=== PATIENT | male | born 1940 | race Caucasian/White ===

== ENCOUNTER 2020-04-01 02:55 | Inpatient (IN) | payer MEDICARE, SELFPAY ==
[2020-04-01] VITALS (46 sets, daily range): BP systolic 72–132; BP diastolic 51–85; PULSE 74–115; RESP 4–31; TEMP 36.6–36.8; O2SAT 90–100; BMI 29.2
--- NOTE | 2020-04-01 03:01 | PC.NURSE ---
EKG done at 0300 and shown to ER doctor
--- NOTE | 2020-04-01 03:04 | XRR_ITS ---
PROCEDURE INFORMATION: Exam: XR Chest, 1 View Exam date and time: 04/01/2020 3:11 AM Age: 79 years old Clinical indication: Shortness of breath; Chest pain; Type not specified; Additional info: Cp TECHNIQUE: Imaging protocol: XR of the chest Views: 1 view. COMPARISON: No relevant prior studies available. FINDINGS: Lungs: Interstitial pulmonary edema with small pleural effusions. Interstitial thickening. Bertrand B lines. Pleural space: See Lungs finding. Heart/Mediastinum: Unremarkable. No cardiomegaly. Bones/joints: Unremarkable. XR/XR chest 1V portable [id number] IMPRESSION: Interstitial pulmonary edema with small pleural effusions.
--- NOTE | 2020-04-01 03:16 | ECG_ITS ---
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 Measurements Intervals [place] Rate: 115 P: 76 PA: 183 QRS: -3 QRSD: 150 T: 112 QT: 374 QTc: 518 Interpretive Statements SINUS TACHYCARDIA WITH OCCASIONAL VENTRICULAR PREMATURE COMPLEXES LEFT ATRIAL ENLARGEMENT [-0.15mV P WAVE IN V1/V2] LEFT BUNDLE BRANCH BLOCK [120+ ms QRS DURATION, 80+ ms Q/S IN V1/V2, 85+ ms R IN I/aVL/V5/V6] No previous ECG available for comparison Electronically Signed On 04-01-2020 18:55:22 GOLF SALES MANAGER by Kishan Wright M.D. [id number]
--- NOTE | 2020-04-01 03:17 | ED_ITS ---
HPI - Chest Pain General: Chief Complaint: Chest Pain Stated Complaint: NSTEMI D/A Time Seen by Provider: 04/01/20 03:00 History of Present Illness: HPI narrative: 79-year-old male presents as a direct admit to cardiology for a non-STEMI . From [facility]. He is not having any pain currently. He denies any contact with known Covid patients. He states he is not had a cough or fever. MD complaint: chest pain Onset (ago): hour(s) Timing of current episode: now resolved Onset: during rest Associated symptoms: Reports dyspnea and palpitations; Deny fever(s) or vomiting Review of Systems Const: Denies: fever(s), chills or body aches Card: Reports: chest pain and palpitations Resp: Reports: dyspnea; Denies: productive cough, non-productive cough or wheezing GI: Denies: vomiting or diarrhea Physical Exam Const: COMMON NORMALS: no acute distress and patient oriented x3 Resp: EFFORT & INSPECTION: Yes tachypneic and No uses accessory muscles AUSCULTATION: rales Cardio: COMMON NORMALS: regular rhythm RATE: tachycardic RHYTHM: regular rhythm HEART SOUNDS: no murmurs GI: COMMON NORMALS: Soft to palpation INSPECTION: Yes normal to inspection PALPATION: Yes Soft to palpation and No Tenderness to palpation present (GI) Neuro: COMMON NORMALS: patient oriented x3 Course Consultations: Consultation #1: Martell Time: 05:12 Vital Signs: Vital signs: Vital Signs Temperature 98.1 F 04/01/20 02:55 Pulse Rate 103 H 04/01/20 05:31 Respiratory Rate 28 H 04/01/20 05:31 Blood Pressure 116/75 04/01/20 05:31 Pulse Oximetry 97 04/01/20 05:31 MDM - Chest Pain MDM Narrative: Medical decision making narrative: 79-year-old gentleman who came in as a direct admit from [facility]. He comes to the ER for Covid screen. His rapid is negative. He is chest pain-free. He has been on heparin. His white blood cell count is 4.8 hemoglobin 13.8. His EKG shows a left bundle branch block, with tachycardia in the 110s to 120s. This improved somewhat after some metoprolol. He received Plavix and aspirin at [facility] as well. His troponin was significantly elevated there. It is over 700 here. His chest x-ray showed some pulmonary edema here, and Lasix was given. We notified cardiology. They will see him this morning in the C[facility].. Lab Data: Labs: Lab Results 04/01/20 04/01/20 04/01/20 Range/Units 03:33 03:33 03:33 WBC 4.8 (4.0-10.0) 10^3/ uL RBC 4.72 (4.1-5.3) 10^6/u L Hgb 13.8 (11.7-16.6) g/dL Hct 42.2 (42.0-52.0) % MCV 89.4 (80-94) fL MCH 29.2 (28.0-34.0) pg MCHC 32.7 (30.0-36.0) g/dL RDW 12.9 (12.1-15.1) % Plt Count 189 (130-400) 10^3/c mm MPV 10.0 (7.4-10.4) fL Neut % (Auto) 93.3 % Lymph % (Auto) 4.2 % Person % (Auto) 2.3 % Eos % (Auto) 0.0 % Baso % (Auto) 0.2 % Neut # (Auto) 4.47 (1.8-7.7) 10^3/u L Lymph # (Auto) 0.2 L (0.8-4.8) 10^3/u L Person # (Auto) 0.1 L (0.2-0.9) 10^3/u L Eos # (Auto) 0.0 (0.0-0.8) 10^3/u L Baso # (Auto) 0.0 (0.0-0.1) 10^3/u L Nucleated RBC % (a uto) 0 % Nucleated RBCs # 0.0 /100WBC D-Dimer 0.52 (0-0.59) ug/mIFE U Sodium 133 L (136-145) mmol/L Potassium 4.6 (3.5-5.1) mmol/L Chloride 98 (98-107) mmol/L Carbon Dioxide 20 L (22-29) mmol/L Anion Gap 19.6 H (5-19) BUN 19 (8-23) mg/dL Creatinine 1.0 (0.7-1.2) mg/dL GFR Calculation Not Reportable Glucose 166 H (65-115) mg/dL Calculated Osmolal ity 282 L (285-295) mOsm/k g Calcium 9.1 (8.5-10.5) mg/dL Total Bilirubin 0.5 (0.15-1.2) mg/dL AST 90 H (0-40) U/L ALT 25 (0-41) U/L Alkaline Phosphata se 70 (40-130) IU/L Creatine Kinase 649 H* (39-308) U/L Troponin T Baselin e (0-15) ng/L NT-Pro-B Natriuret Pep 4826 H (0-450) pg/mL Total Protein 6.6 (6.6-8.7) g/dL Albumin 4.1 (3.5-5.2) g/dL Globulin 2.5 (1.3-4.6) g/dL SARS-CoV-2 Ag (Rap id) (Negative) 04/01/20 04/01/20 Range/Units 03:33 03:33 WBC (4.0-10.0) 10^3/ uL RBC (4.1-5.3) 10^6/u L Hgb (11.7-16.6) g/dL Hct (42.0-52.0) % MCV (80-94) fL MCH (28.0-34.0) pg MCHC (30.0-36.0) g/dL RDW (12.1-15.1) % Plt Count (130-400) 10^3/c mm MPV (7.4-10.4) fL Neut % (Auto) % Lymph % (Auto) % Person % (Auto) % Eos % (Auto) % Baso % (Auto) % Neut # (Auto) (1.8-7.7) 10^3/u L Lymph # (Auto) (0.8-4.8) 10^3/u L Person # (Auto) (0.2-0.9) 10^3/u L Eos # (Auto) (0.0-0.8) 10^3/u L Baso # (Auto) (0.0-0.1) 10^3/u L Nucleated RBC % (a uto) % Nucleated RBCs # /100WBC D-Dimer (0-0.59) ug/mIFE U Sodium (136-145) mmol/L Potassium (3.5-5.1) mmol/L Chloride (98-107) mmol/L Carbon Dioxide (22-29) mmol/L Anion Gap (5-19) BUN (8-23) mg/dL Creatinine (0.7-1.2) mg/dL GFR Calculation Glucose (65-115) mg/dL Calculated Osmolal ity (285-295) mOsm/k g Calcium (8.5-10.5) mg/dL Total Bilirubin (0.15-1.2) mg/dL AST (0-40) U/L ALT (0-41) U/L Alkaline Phosphata se (40-130) IU/L Creatine Kinase (39-308) U/L Troponin T Baselin e 758 H* (0-15) ng/L NT-Pro-B Natriuret Pep (0-450) pg/mL Total Protein (6.6-8.7) g/dL Albumin (3.5-5.2) g/dL Globulin (1.3-4.6) g/dL SARS-CoV-2 Ag (Rap id) Negative (Negative) Discharge Plan Discharge Patient Disposition: Admitted As Inpatient Admit Provider: Carlyle Moura Clinical Impression: Myocardial infarction Qualifiers: Myocardial infarction type: non-ST elevation myocardial infarction Qualified Code(s): I21.4 - Non-ST elevation (NSTEMI) myocardial infarction Condition: Stable Coding Level of Care Code ED Motor Expert for Chg Fwd Exam Expanded Problem Focused
--- NOTE | 2020-04-01 03:23 | PC.NURSE ---
Placed patient on 2 liters via nasal cannula per doctors orders. Nurse and doctor have been made aware.
[2020-04-01] MEDS: FUROsemide 10 mg/mL SDV 10mL 60 MG IVP (03:33)
[2020-04-01] MEDS: metoprolol tartrate 1 mg/1 mL SDV 5 mL 2.5 MG IV (03:35)
[2020-04-01] MEDS: heparin drip 25,000 UNIT/500 ML PREMIX 18 UNIT IV (03:35)
[2020-04-01 03:50] LABS: Basophils % 0.2 %; Hematocrit 42.2 % (42.0-52.0); Hemoglobin 13.8 g/dL (11.7-16.6); Lymphocytes # 0.2 10^3/uL (0.8-4.8); Lymphocytes % 4.2 %; Mean Corpuscular HGB Conc 32.7 g/dL (30.0-36.0); Mean Corpuscular Hemoglobin 29.2 pg (28.0-34.0); Mean Corpuscular Volume 89.4 fL (80-94); Monocytes # 0.1 10^3/uL (0.2-0.9); Monocytes % 2.3 %; Neutrophils # 4.47 10^3/uL (1.8-7.7); Neutrophils % 93.3 %; Nucleated Red Blood Cells % 0 %; Platelet Count 189 10^3/cmm (130-400); Red Blood Count 4.72 10^6/uL (4.1-5.3); Red Cell Distribution Width 12.9 % (12.1-15.1); White Blood Count 4.8 10^3/uL (4.0-10.0)
[2020-04-01 04:14] LABS: SARS Covid-2 Antigen Negative (Negative)
[2020-04-01 04:29] LABS: D Dimer 0.52 ug/mIFEU (0-0.59)
[2020-04-01 04:55] LABS: Alanine Aminotransferase 25 U/L (0-41); Albumin Level 4.1 g/dL (3.5-5.2); Alkaline Phosphatase 70 IU/L (40-130); Anion Gap 19.6 (5-19); Aspartate Amino Transferase 90 U/L (0-40); Blood Urea Nitrogen 19 mg/dL (8-23); Calcium 9.1 mg/dL (8.5-10.5); Carbon Dioxide 20 mmol/L (22-29); Chloride 98 mmol/L (98-107); Globulin 2.5 g/dL (1.3-4.6); Glucose 166 mg/dL (65-115); NT Pro B Type Natriuretic Pept 4826 pg/mL (0-450); Osmolality Calculated 282 mOsm/kg (285-295); Potassium 4.6 mmol/L (3.5-5.1); Sodium 133 mmol/L (136-145); Total Bilirubin 0.5 mg/dL (0.15-1.2); Total Protein 6.6 g/dL (6.6-8.7)
[2020-04-01 04:56] LABS: Creatine Phosphokinase 649 U/L (39-308)
[2020-04-01 05:09] LABS: Troponin(5th) Baseline 758 ng/L (0-15)
--- NOTE | 2020-04-01 05:15 | PC.NURSE ---
EKG done at 0515 and shown to ER doctor
--- NOTE | 2020-04-01 05:16 | ECG_ITS ---
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 Measurements Intervals [place] Rate: 106 P: 8 [place]: 188 QRS: -36 QRSD: 164 T: 125 QT: 373 QTc: 497 Interpretive Statements SINUS TACHYCARDIA WITH OCCASIONAL VENTRICULAR PREMATURE COMPLEXES POSSIBLE LEFT ATRIAL ENLARGEMENT [-0.1mV P WAVE IN V1/V2] LEFT AXIS DEVIATION [QRS AXIS < -30] LEFT BUNDLE BRANCH BLOCK [120+ ms QRS DURATION, 80+ ms Q/S IN V1/V2, 85+ ms R IN I/aVL/V5/V6] Compared to ECG 04/01/2020 02:58:02 Left-axis deviation now present Electronically Signed On 04-01-2020 18:59:32 DRILLER'S OFFSIDER by Kishan Wright M.D. [id number]
[2020-04-01 05:55] LABS: Troponin 5 2HR 1151 ng/L (0-15); Troponin 5 2HR Delta 393 ABS# (0-10)
--- NOTE | 2020-04-01 06:20 | P.HP_ITS ---
Providers/Chief Complaint Admitting Physician: Carlyle Moura MD Chief Complaint: NSTEMI D/A History of Present Illness Khoa Thomas is a 79 year old male who does not have significant past cardiac history went to the [facility] for chief complaint of chest pain. 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 For last 2 to 3 weeks he is also experiencing shortness of breath on exertion and lately he has been experiencing orthopnea and PND which gets better when he sits up. Today he started experiencing chest pain around 5-6 PM when he was watching television. Mostly he was feeling discomfort in his neck and jaw, he noticed mild pressure-like sensation substernally and would not call it excruciating pain. His pain persisted until he went to the [facility] and received medications. Symptoms improved with sublingual nitroglycerin. He is denying previous history of chronic kidney disease, SD, CHF, stroke however he is status post left carotid artery stent. [facility] called Dr. Wright for NSTEMI, Dr. Moura accepted the patient and requested hospitalist service to admit and consult Dr. Wright. In the emergency department patient's troponin was greater than 700, significant delta, left bundle branch block without Brugada's criteria, patient is chest pain-free, hemodynamically stable, tachycardic. He was started on heparin/ACS protocol, Covid antigen negative, new onset CHF, pulmonary edema evident on chest x-ray Review of Systems Const: Denies: fever(s), chills or body aches Eyes: Denies: change in vision ENMT: Denies: throat pain Card: Reports: chest pain, swelling of feet/ankles, dyspnea on exertion and orthopnea; Denies: pre-syncope Resp: Reports: dyspnea GI: Denies: abdominal pain : Denies: flank pain Musc: Reports: neck pain Skin/Breast: Denies: rash Neuro: Denies: headache(s) Psych: Denies: anxiety Endo: Denies: polyuria Victor Manuel/Lymph: Denies: easy bruising All/Imm: Denies: urticaria Medications/Allergies Home Medications Medication Instructions Recorded Confirmed Last Taken Type atorvastatin 10 mg PO BEDTIME 04/01/20 04/01/20 03/30/20 20:00 History finasteride 5 mg PO BEDTIME 04/01/20 04/01/20 03/30/20 20:00 History levothyroxine 50 mcg PO DAILY 04/01/20 04/01/20 03/31/20 08:00 History lisinopril 10 mg PO BEDTIME 04/01/20 04/01/20 03/30/20 20:00 History metoprolol tartrate 6.25 mg PO BID 04/01/20 04/01/20 03/31/20 17:30 History terazosin 10 mg PO BEDTIME 04/01/20 04/01/20 03/30/20 20:00 History Allergies Allergy/AdvReac Type Severity Reaction Status Date / Time No Known Allergies Allergy Verified 04/01/20 02:56 PFSH Acute PFSH: Medical History (Updated 04/01/20 @ 07:03 by Carlyle Lambert MD) BPH (benign prostatic hyperplasia) Carotid artery disease Status post stent placement left carotid artery Hypertension Hypothyroidism (acquired) Surgical History (Updated 04/01/20 @ 07:03 by Carlyle Lambert MD) History of thyroidectomy Partial thyroidectomy History of vascular surgery Left carotid endartectomy with stent placement Family History (Updated 04/01/20 @ 07:04 by Carlyle Lambert MD) Father CAD (coronary artery disease) Had an SD at age 89 Social History (Updated 04/01/20 @ 07:04 by Carlyle Lambert MD) Alcohol intake: never Substance/Drug Use: never Lives independently: Yes Household members: spouse Housing: House Vitals/I&O/Wt Last Vital Signs Temp 98.2 F 04/01/20 06:00 Pulse 105 H 04/01/20 06:00 Resp 20 H 04/01/20 06:00 BP 132/64 04/01/20 06:00 Pulse Ox 95 04/01/20 06:00 Weight last 48 hrs Weight 74.843 kg Physical Exam Narrative: EXAM NARRATIVE: elderly male When I entered the room he was lying comfortably in his bed without any active discomfort Saturating well on room air Appears younger than stated age S1, S2 sinus tachycardia, minimal signs of fluid overload, bilateral crackles noted in his lungs at the bases No acute respiratory stress, crackles noted bibasilar, 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 No neurological deficit Awake alert oriented x3 GCS 15 Abdomen soft nontender bowel sound present Lower extremity 1+ pitting edema Appropriate mood and affect No skin ulcers Data : 04/01/20 03:33 04/01/20 03:33 A&P Assessment and plan (1) New onset of congestive heart failure: Status: Acute (2) NSTEMI (non-ST elevated myocardial infarction): Status: Acute Additional A&P Information NSTEMI Significant delta troponin, left bundle branch block, no active chest pain, does not meet Brugada's criteria for STEMI alert I will start him on heparin, aspirin, Plavix, high-intensity statins, beta- marcus and lisinopril Dr. Wright consulted(went to voicemail) Dr. Moura requested hospital service to admit the patient Echo Patient most likely will benefit from an angiogram considering new left bundle branch block and NSTEMI and CHF Check lipid profile, A1c panel and TSH New onset CHF Most likely etiology is coronary ischemia He will benefit from an angiogram No acute respiratory distress, currently saturating well on room air at the time of my evaluation Received IV Lasix 60 mg in the ER I would keep him on 20 mg for now clinically does not look significantly fluid overloaded however chest x-ray is consistent with pulmonary edema which goes with the clinical picture of left-sided heart failure Acquired hypothyroidism: Continue levothyroxine, check TSH Hypertension: Currently normotensive N.p.o. Full code DVT prophylaxis not needed currently on therapeutic dose of heparin Attestations Medical Necessity Statement*: Anticipating stay in the hospital course more than 2 midnights most likely would need an angiogram currently NSTEMI ACS protocol initiated Time Spent in Patient Care: (>than 50% of time spent in counselling and/or direct pt care on unit) . 40mins Coding Level of Care Code Acute Snowboard Designer for Jaelyn Fwolimpia Diagnoses New onset of congestive heart failure I50.9 NSTEMI (non-ST elevated myocardial infarction) I21.4
--- NOTE | 2020-04-01 06:24 | USCV_ITS ---
Khoa Thomas Age: 79 Gender: M : 1940 Exam Date: 04/01/2020 08:31 Ordering Phys: Carlyle Lambert MD Technologist: Caryl Olson Exam Location: [facility] Indication: NSTEMI BP: 97 / 72 HR: 76 Rhythm: Sinus Technical Quality: Suboptimal MEASUREMENTS (Male / Female) Normal Values 2D ECHO LV Diastolic Diameter PLAX 4.7 cm 4.2 - 5.9 / 3.9 - 5.3 cm LV Systolic Diameter PLAX 3.3 cm LV Chamber Size 4.7 cm IVS Diastolic Thickness 1.0 cm 0.6 - 1.0 / 0.6 - 0.9 cm IVS Systolic Thickness 1.8 cm LVPW Diastolic Thickness 1.1 cm 0.6 - 1.0 / 0.6 - 0.9 cm LVPW Systolic Thickness 1.3 cm RV Chamber Size 2.6 cm LVOT Diameter 2.1 cm LV Ejection Fraction 2D Teich 57.6 % LA Diameter 3.8 cm LA Width 4.0 cm LA Height 5.9 cm RA Width 2.8 cm RA Height 4.4 cm Aorta at Sinotubular Diameter 3.2 cm M-MODE LV Diastolic Diameter MM 6.7 cm 4.2 - 5.9 / 3.9 - 5.3 cm LV Systolic Diameter MM 5.7 cm LV Ejection Fraction MM Teich 30.7 % IVS Diastolic Thickness MM 1.7 cm 0.6 - 1.0 / 0.6 - 0.9 cm IVS Systolic Thickness MM 1.4 cm LVPW Diastolic Thickness MM 1.3 cm 0.6 - 1.0 / 0.6 - 0.9 cm LVPW Systolic Thickness MM 1.7 cm Aortic Annulus Diameter 3.8 cm LA Ao Ratio MM 0.9 MV E Point Septal Separation 1.2 cm DOPPLER AV Peak Velocity 90.0 cm/s LVOT Peak Velocity 77.0 cm/s AV Area Cont Eq vti 3.0 cm squared AV Area Cont Eq pk 3.1 cm squared MV Area PHT 9.2 cm squared MV E' Velocity 152.0 cm/s TR Peak Velocity 317.0 cm/s TR Peak Gradient 40.2 mmHg TR Mean Velocity 264.8 cm/s TR Mean Gradient 28.3 mmHg TR Velocity Time Integral 73.9 cm TV Peak E Velocity 90.0 cm/s PV Peak Velocity 89.0 cm/s RV Acceleration Time 0.1 s RV Ejection Time 0.2 s RV AcT/ET 0.5 FINDINGS Left Ventricle Diffuse hypokinesia of the left ventricle with ejection fraction of 35 to 40%. Mildly dilated LV cavity Right Ventricle Normal right ventricular size and systolic function. Right Atrium The right atrium is normal in size. Left Atrium Mildly increased left atrial size. Mitral Valve At least moderate mitral valve regurgitation. Thickened mitral valve. Aortic Valve Thickened aortic valve Tricuspid Valve Trace to mild tricuspid valve regurgitation. Mild pulmonary hypertension with an estimated pulmonary artery peak systolic pressure of 48 mmHg Pulmonic Valve Trace pulmonary valve regurgitation. Pericardium No pericardial effusion. Aorta Normal ascending aorta dimension. CONCLUSIONS Diffuse hypokinesia of the left ventricle with ejection fraction of 35 to 40%. Mildly dilated LV cavity. Mildly increased left atrial size. Thickened aortic and mitral valves Trace to mild tricuspid valve regurgitation. Trace pulmonary valve regurgitation. Mild pulmonary hypertension with an estimated pulmonary artery peak systolic pressure of 48 mmHg. There is no pericardial effusion. There are no intracardiac masses. No previous study is available for comparison. Dr Kishan Wright MD FACC (Electronically Signed) Final Date: 01 April 2020 10:49 S
[2020-04-01 07:07] LABS: Estmated Average Glucose 117; Hemoglobin A1C 5.7 % (4.0-6.0)
[2020-04-01 07:13] LABS: Chol HDL Ratio 2.44 mg/dL (1.0-5.00); Cholesterol 156 mg/dL (0-200); HDL Cholesterol 64 mg/dL (60-100); LDL Cholesterol Calculated 86 mg/dL (50-129); LDL HDL Ratio 1.34 RATIO (0.00-3.22); Triglycerides 31 mg/dL (0-150)
--- NOTE | 2020-04-01 07:33 | PC.NURSE ---
Patient arrived to floor via stretcher from ER at 0445 this am. Patient alert and oriented with no skin issues noted at this time. Patient is tachycardic with no voiced chest pain or discomfort at this time. Patient able to answer medication questions and give a history. Patient on Heparin drip running at 18mL/hr per protocol of ED. PTT order placed for 0930 timed draw by lab. Message left with ultrasound for Echo to be completed GILLIAN. orders verified and patient clothing and belongings in bag at bedside. Possible heart cath for today due to elevated trop 120 T was 1151 provider notified. Will continue to monitor and assist as needed following CPOC.
[2020-04-01] MEDS: FUROsemide 10 mg/mL SDV 2mL 20 MG IVP (07:43)
--- NOTE | 2020-04-01 08:42 | P.CONIM_ITS ---
Providers/Reason For Consult Consulting Physican/Specialty*: MELY Wright MD/cardiology Reason for Consult*: Patient is a prolonged chest pain/elevated troponin T Requesting Tatean: ludwig Lambert History of Present Illness History of Present Illness Khoa Thomas is a 79 year old male with a history of hypertension and dyslipidemia, presented to the [facility] last night with prolonged episode of chest pain. He was found to have elevated troponin T. He is transferred to our hospital for further evaluation management. Mr. Thomas has been in his baseline state of health up until last evening when while he was watching TV, started having pain in the jaw and also in the neck. He had associated shortness of breath. The symptom was moderate to begin with. Then it became worse. He waited around for couple of hours hoping that the symptoms will go away. He had associated shortness of breath and some sweating. No nausea or vomiting. No palpitation. No dizziness or syncopal episodes. Because of the worsening of the symptoms, he was brought to the [facility]. There he was given sublingual nitroglycerin. His symptoms started fading away. At the time of my examination, patient is pain-free. He had significant shortness of breath which also seems to be improving. He had some features of congestive heart failure. His chest x-ray revealed features of interstitial edema and small pleural effusions. According the patient, for the last 1 year, he has been having exertional pain in the neck and in the jaw area. Usually if these are precipitated with activities. The symptom may last for 10 to 15 minutes and then gradually goes away with rest. Most of the times it happens in the morning as he gets out and go to work. Lately these episodes have been getting more frequent. He also has been getting more fatigued and short of breath with activities. Did not have any orthopnea or PND. No leg swelling. Denies any fever, chills or cough. No other specific complaints. He has no previous history for coronary artery disease, myocardial infarction or congestive heart failure. No history for CVA or peripheral artery disease. He is known to have high blood pressure and dyslipidemia. He has been taking medication for these for the last 2 to 3 years. No history for any accelerated hypertension. He has been compliant with medications. For over 5 years ago, he was seen at the [facility] for the treatment of of a tumor in the kidney. The details are not available. He is 2-hour troponin T had a delta of 323. His BNP is in the 4800 range Review of Systems Narrative: CONSTITUTIONAL: No fever or chills. EYES: No blurring of vision or other visual disturbances lately. ENT: No hoarseness of voice, auditory disturbances or sore throat. CARDIOVASCULAR: As mentioned above. RESPIRATORY: Has been having some amount of dyspnea on exertion. No history of smoking abuse or alcohol abuse. GASTROINTESTINAL: No hematemesis or melena. GENITOURINARY: History of kidney tumor as mentioned above INTEGUMENTARY: No skin rashes or history of skin cancer. NEURO: No transient ischemic attacks or amaurosis. PSYCHIATRIC: No history of psychosis or major depression. HEMATOLOGIC: No bleeding disorders or significant anemia. ENDOCRINE: No history of polyuria or polydipsia. MUSCULOSKELETAL: No recent joint pain or swelling. ALLERGY/IMMUNOLOGY: As mentioned above. Meds/Allergies Home Medications and Allergies Home Medications Medication Instructions Recorded Confirmed Last Taken Type atorvastatin 10 mg PO BEDTIME 04/01/20 04/01/20 03/30/20 20:00 History finasteride 5 mg PO BEDTIME 04/01/20 04/01/20 03/30/20 20:00 History levothyroxine 50 mcg PO DAILY 04/01/20 04/01/20 03/31/20 08:00 History lisinopril 10 mg PO BEDTIME 04/01/20 04/01/20 03/30/20 20:00 History metoprolol tartrate 6.25 mg PO BID 04/01/20 04/01/20 03/31/20 17:30 History terazosin 10 mg PO BEDTIME 04/01/20 04/01/20 03/30/20 20:00 History Allergies Allergy/AdvReac Type Severity Reaction Status Date / Time No Known Allergies Allergy Verified 04/01/20 02:56 Current Medications Current Medications Generic Name Dose Route Start Last Admin Trade Name Freq PRN Reason Stop Dose Admin Furosemide 20 mg 04/01/20 07:00 04/01/20 07:43 Furosemide 10 Mg/Ml Sdv 2ml IVP 20 mg Q24H TRICIA Administration PFSH Acute PFSH: Medical History Benign essential hypertension with target blood pressure below 140/90 BPH (benign prostatic hyperplasia) Carotid artery disease Status post stent placement left carotid artery Dyslipidemia (high LDL; low HDL) Hypertension Hypothyroidism (acquired) Surgical History History of thyroidectomy Partial thyroidectomy History of vascular surgery Left carotid endartectomy with stent placement Family History Father CAD (coronary artery disease) Had an NM at age 89 Social History Alcohol intake: never Substance/Drug Use: never Lives independently: Yes Household members: spouse Housing: House Vitals/I&O/Wt Last Vital Signs Temp 98.2 F 04/01/20 07:48 Pulse 101 H 04/01/20 07:48 Resp 18 04/01/20 07:48 BP 97/72 04/01/20 07:48 Pulse Ox 96 04/01/20 07:48 Weight last 48 hrs Weight 165 lb Physical Exam Narrative: EXAM NARRATIVE: GENERAL: The patient is alert and oriented times three. Not in any acute distress. HEENT: No significant pallor, icterus or lymphadenopathy. The pupils are reactant to light. Oral cavity: There are no mucous membrane lesions. Funduscopic examination: The fundus is not visualized NECK: Trachea appears to be central. No masses noted. No JVD or thyromegaly appreciated. No carotid bruit. RESPIRATORY: Chest is symmetrical. No intercostals muscle retraction or any accessory muscle activation. There is no chest wall tenderness. Breath sounds are heard bilaterally. No rales or rhonchi heard. No evidence of any consolidation. BREASTS: Deferred. HEART: The PMI could not be palpated. No palpable precordial events. S1 and S2 are normal. No S3 or S4 heard. No pericardial rub or any click heard. Short systolic murmur in the mitral area. No diastolic murmurs. ABDOMEN: No vessel pulsations or distention. No tenderness. No organomegaly appreciated. No abdominal bruit. Bowel sounds are normally heard. : Deferred. RECTAL: Deferred. LYMPHATIC: No lymphadenopathy noted in the neck or groin. EXTREMITIES: No edema or cyanosis. No clubbing. The pulses are symmetrical tanesha aterally. The dorsalis pedis and posterior pulses are palpable but slightly weak. Good radial pulses bilaterally. MUSCULOSKELETAL: No acute joint deformities or swelling SKIN: There are no significant scars or skin rash noted. NEUROPSYCHIATRIC: The patient is alert and oriented x3. Appears to be in a good mood. The higher functions are grossly within normal limits. No tremors or rigidity noted. Data Labs: Other Labs: Laboratory Last Values WBC 4.8 10^3/uL (4.0- 10.0) 04/01/20 03:33 RBC 4.72 10^6/uL (4.1 -5.3) 04/01/20 03:33 Hgb 13.8 g/dL (11.7-1 6.6) 04/01/20 03:33 Hct 42.2 % (42.0-52.0 ) 04/01/20 03:33 MCV 89.4 fL (80-94) 04/01/20 03:33 MCH 29.2 pg (28.0-34. 0) 04/01/20 03:33 MCHC 32.7 g/dL (30.0-3 6.0) 04/01/20 03:33 RDW 12.9 % (12.1-15.1 ) 04/01/20 03:33 Plt Count 189 10^3/cmm (130 -400) 04/01/20 03:33 MPV 10.0 fL (7.4-10.4 ) 04/01/20 03:33 Neut % (Auto) 93.3 % 04/01/20 03:33 Lymph % (Auto) 4.2 % 04/01/20 03:33 [place] % (Auto) 2.3 % 04/01/20 03:33 Eos % (Auto) 0.0 % 04/01/20 03:33 Baso % (Auto) 0.2 % 04/01/20 03:33 Neut # (Auto) 4.47 10^3/uL (1.8 -7.7) 04/01/20 03:33 Lymph # (Auto) 0.2 10^3/uL (0.8- 4.8) L 04/01/20 03:33 [place] # (Auto) 0.1 10^3/uL (0.2- 0.9) L 04/01/20 03:33 Eos # (Auto) 0.0 10^3/uL (0.0- 0.8) 04/01/20 03:33 Baso # (Auto) 0.0 10^3/uL (0.0- 0.1) 04/01/20 03:33 Nucleated RBC % (a uto) 0 % 04/01/20 03:33 Nucleated RBCs # 0.0 /100WBC 04/01/20 03:33 D-Dimer 0.52 ug/mIFEU (0- 0.59) 04/01/20 03:33 Sodium 133 mmol/L (136-1 45) L 04/01/20 03:33 Potassium 4.6 mmol/L (3.5-5 .1) 04/01/20 03:33 Chloride 98 mmol/L (98-107 ) 04/01/20 03:33 Carbon Dioxide 20 mmol/L (22-29) L 04/01/20 03:33 Anion Gap 19.6 (5-19) H 04/01/20 03:33 BUN 19 mg/dL (8-23) 04/01/20 03:33 Creatinine 1.0 mg/dL (0.7-1. 2) 04/01/20 03:33 GFR Calculation Not Reportable 04/01/20 03:33 Glucose 166 mg/dL (65-115 ) H 04/01/20 03:33 Estimat Average Gl ucose 117 04/01/20 03:33 Hemoglobin A1c 5.7 % (4.0-6.0) 04/01/20 03:33 Calculated Osmolal ity 282 mOsm/kg (285- 295) L 04/01/20 03:33 Calcium 9.1 mg/dL (8.5-10 .5) 04/01/20 03:33 Total Bilirubin 0.5 mg/dL (0.15-1 .2) 04/01/20 03:33 AST 90 U/L (0-40) H 04/01/20 03:33 ALT 25 U/L (0-41) 04/01/20 03:33 Alkaline Phosphata se 70 IU/L (40-130) 04/01/20 03:33 Creatine Kinase 649 U/L (39-308) H* 04/01/20 03:33 Troponin T Baselin e 758 ng/L (0-15) H* 04/01/20 03:33 Troponin T 120 Min [place] 1151 ng/L (0-15) H 04/01/20 05:23 Delta Troponin T 393 ABS# (0-10) H* 04/01/20 05:23 NT-Pro-B Natriuret Pep 4826 pg/mL (0-450 ) H 04/01/20 03:33 Total Protein 6.6 g/dL (6.6-8.7 ) 04/01/20 03:33 Albumin 4.1 g/dL (3.5-5.2 ) 04/01/20 03:33 Globulin 2.5 g/dL (1.3-4.6 ) 04/01/20 03:33 Triglycerides 31 mg/dL (0-150) 04/01/20 03:33 Cholesterol 156 mg/dL (0-200) 04/01/20 03:33 LDL Cholesterol, C alc 86 mg/dL (50-129) 04/01/20 03:33 HDL Cholesterol 64 mg/dL (60-100) 04/01/20 03:33 LDL/HDL Ratio 1.34 RATIO (0.00- 3.22) 04/01/20 03:33 Cholesterol/HDL Ra renae 2.44 mg/dL (1.0-5 .00) 04/01/20 03:33 SARS-CoV-2 Ag (Rap id) Negative (Negati ve) 04/01/20 03:33 A&P Assessment and plan (1) Unstable angina: Patient symptoms are suggestive of unstable angina. Hemodynamically he seems to be stable. He was started on heparin in the emergency room which may be continued. He also may be treated with a topical nitrates and p.o. aspirin. Status: Acute (2) NSTEMI (non-ST elevated myocardial infarction): Clinical features are consistent with non-ST relation myocardial in farction.I also may start him on a low-dose of beta-marcus, p.o. aspirin, high- dose statin and Plavix. We will go ahead and do an echocardiogram, to evaluate the LV function and rule out any other pathology. It looks like that the non-ST elevation myocardial infarction is complicated with heart failure Status: Acute (3) Left bundle branch block: It is not clear at this point whether this is new or old. We will be closely monitoring his rhythm on telemetry. Status: Acute (4) Benign essential hypertension with target blood pressure below 140/90: Currently the blood pressure is in the low normal side. Patient may be carefully treated with IV fluids Status: Acute (5) Dyslipidemia (high LDL; low HDL): High-dose statin as mentioned above Status: Acute (6) Acute decompensated heart failure: Patient may be carefully treated with IV diuretics. Also will review the echocardiogram. Status: Acute Additional A&P Information Based on the patient's the clinical progress and the results of the above, further recommendations will be made. Patient may benefit from an early cardiac catheterization, to further evaluate his coronary status and decide on further management. Coding Level of Care Code Acute Reporting Process Consultant for Jaelyn Johns Diagnoses Unstable angina I20.0 NSTEMI (non-ST elevated myocardial infarction) I21.4 Left bundle branch block I44.7 Benign essential hypertension with target blood pressure below 140/90 I10 Dyslipidemia (high LDL; low HDL) E78.5 Acute decompensated heart failure I50.9
--- NOTE | 2020-04-01 09:16 | ECG_ITS ---
[facility] Test Date: 2020-04-01 Pat Name: Khoa Thomas Department: Room: 102 Gender: Male Endoscopy Support Specialist: : 1940 Requested By: Antoine Mcrae Order Number: [id number] Liset MD: Kishan Wright M.D. Measurements Intervals [place] Rate: 90 P: 63 SC: 224 QRS: -44 QRSD: 104 T: 125 QT: 350 QTc: 429 Interpretive Statements SINUS RHYTHM WITH FIRST DEGREE AV BLOCK POSSIBLE LEFT ATRIAL ENLARGEMENT [-0.1mV P WAVE IN V1/V2] ANTERIOR MYOCARDIAL INFARCTION [40+ ms Q WAVE AND/OR ST/T ABNORMALITY IN V3/V4], PROBABLY RECENT INFERIOR MYOCARDIAL INFARCTION [40+ ms Q WAVE AND/OR ST/T ABNORMALITY IN II/aVF], PROBABLY OLD ACUTE NE Compared to ECG 04/01/2020 05:13:52 First degree AV block now present Myocardial infarct finding now present Sinus tachycardia no longer present Ventricular premature complex(es) no longer present Left-axis deviation no longer present Left bundle-branch block no longer present Electronically Signed On 04-01-2020 18:59:54 TRANSPORTATION CONSULTANT by Kishan Wright M.D. [id number]
[2020-04-01] MEDS: aspirin 81 mg EC Tablet PO (09:33)
[2020-04-01] MEDS: levothyroxine 50 mcg Tablet PO (09:34)
[2020-04-01] MEDS: lisinopril 10 mg Tablet PO (09:34)
[2020-04-01] MEDS: metoprolol tartrate 25 mg Tablet 12.5 MG PO (09:35)
[2020-04-01] MEDS: clopidogrel 75 mg Tablet PO (09:35)
[2020-04-01] MEDS: metoprolol succinate ER (24 HR) 25 mg Tablet 12.5 MG PO (09:36)
[2020-04-01 10:01] LABS: Thyroid Stimulating Hormone 1.81 uIU/mL (0.27-4.20)
[2020-04-01 10:23] LABS: Partial Thromboplastin Time 80.8 SECONDS (23.9-36.7)
--- NOTE | 2020-04-01 10:29 | XACV_ITS ---
Exam Room: [facility] Ht: 160 cm Wt: 73 kg BSA: 1.83 m2 Gender: Male : 1940 Any Known Allergies: No known allergies Exam Priority: Routine Procedure(s): Procedure Description: Diagnostic procedure Procedure Description: Left ventriculography Procedure Description: Coronary Angiography Diagnostic Cath Status: Urgent Diagnostic Findings * The left main is an extremely short vessel with heavy calcification. It appears to bifurcate to the left anterior descending artery and the circumflex artery. * The left anterior descending artery was found to have high-grade ostial stenosis of around 98%. The mid segment of the artery was found to have around 50 to 60% tubular narrowing. * The left circumflex artery is a medium caliber vessel which was found to have an ostial narrowing from 60 to 70%. The first obtuse marginal branch, the intermedius artery is a relatively small caliber vessel with an ostial around 70 to 80% narrowing. The distal vessel was found to have mild diffuse intimal irregularities with no significant stenotic lesions.. * The right coronary artery is a medium caliber vessel which appears to be totally occluded after the sinus node branch. There were some bridging collaterals to the proximal segment of the RCA. Gradient with 2-3 [id number] collaterals were noted during the left coronary injection. * No significant disease noted in the Left Main, LAD, Circumflex, or RCA coronary arteries. * Coronary angiography shows right dominance. Conclusions 1. This is a 79-year-old white male with history of hypertension, dyslipidemia and carotid artery disease, presenting with a increasing episodes of neck pain/jaw pain associated shortness of breath. He had echocardiogram done which revealed LV ejection fraction of 35 to 40%. Serial cardiac enzymes revealed a troponin T delta of 323 in 2 hours. The latest troponin T still shows an upward trend. He had features of LV systolic heart failure. In view of his clinical presentation and the abnormal objective findings, in order to further evaluate his coronary status, a cardiac catheterization was recommended. Patient underwent left and right heart catheterization with a left and right coronary angiogram today. The findings are as follows.. 2. Heavy calcification in the short left main. High-grade lesion of around 95% in the proximal segment of the left anterior descending artery, including the ostium. Moderate diffuse disease in the mid LAD. The ostium of the circumflex artery was found to have around 60% stenosis. Mild diffuse disease was noted in the rest of the circumflex artery . 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 Grade 2-3 left to right collaterals were noted. Left ventricular end-diastolic pressure of 23 mmHg. . 3. The mean right atrial pressure was 7, RV pressure of 37/2. No evidence of shunt, based on the oxygen calculation. LV gram was not performed because of the frequent ventricular arrhythmia. The LVEDP was 23 mmHg. Based on the angiogram findings, patient may benefit from surgical revascularization. This will be discussed the patient in detail and the final decision will be made afterwards. 4. No significant disease noted in the Left Main, LAD, Circumflex, or RCA coronary arteries. Recommendations * Continue current medical management and risk factor modification. Interventional RX Recommendation: CABG Diagnostic RX Recommendation: CABG LV EDP: 23 mmHg Left Ventriculography Findings: * The LV gram was not performed because of the frequent PVCs with the LV catheter. The LVEDP was 23 mmHg. Pressures Phase:Rest AO : 8 / -12 ( -3 ) @ 6:52:00 AM 23 / 14 ( 17 ) @ 7:10:00 AM 92 / 48 ( 66 ) @ 7:26:00 AM 123 / 50 ( 83 ) @ 7:42:00 AM 116 / 56 ( 82 ) @ 7:42:00 AM LV : 111 / 7 / @ 7:41:00 AM 110 / 5 / @ 7:42:00 AM RV : 30 / 7 / @ 7:16:00 AM RA : a wave = v wave = mean = 7 @ 7:12:00 AM Hemodynamic Findings The right atrial pressure was 7 and the RV pressure was 35/2. There were some technical problems in advancing the RV catheter to the pulmonary artery. Valves Phase:DefaultPhase AV : 0.0 @ 2:01:21 PM AV Mean Gradient: 0.0 @ 2:01:21 PM Clinical Evaluation EBL: 5mL-10mL Procedural Details Procedure Consent Obtained. Pre-Procedure Time Out. Identified patient by full name and date of as verbalized by the patient/guarantor. Does the consent match the physician's order: Yes. Accurate & Complete Informed Consent: Yes. Inpatient/Outpatient History & Physical on Chart: Yes. If H&P is completed, is and addenduem needed: No; If yes, is the addendum complete: N/A. Visualize and Verify Site with Patient/Guarantor: N/A. Relevant Radiology Images available: Yes. Pre-op teaching completed and patient verbalized understanding. The risks, benefits, and alternatives of sedation and/or procedure were discussed by physician. The patient agrees to continue. Procedure started. [facility] Clinical Fraility Score: 4: Vulnerable. Battery Tester Indications: New Onset Angina. Chest Pain Symptom Assessment: Typical Angina Symptoms. Cardiovascular Instability: No. Correct patient, site and procedure confirmed by cath team. Current diagnosis: Chest Pain. PERRLA. Strong, equal hand spout liner bilaterally. Lungs clear x 5 lobes. IV Site on Arrival: 18 gauge in the left forearm. IV Fluids: 0.9% NaCl at KVO. 0 mL infused prior to laboratory sampler. Pre Procedural Pulses: bilateral dorsalis pedis was 2+. Pre Procedural Pulses: bilateral posterior tibial was 2+. Pre Procedural Pulses: right radial was 3+. Oxygen started at 2liters/min via nasal canula. bilateral groins was prepped with chloroprep then draped in the usual sterile fashion. Physician notified. Baseline sample Acquired. HR: 106 BPM. Equipment: 5F - Femoral. Heparinized Saline (2 units/mL), 1000 mL bag. Kit, Micropuncture. Cardiac Cath Pack. ACIST Manifold Kit Model BT 2000. Physician arrived. Physician scrubbed in. Immediate Pre-Procedure Time Out. Correct Patient: Yes; Correct Procedure: Yes; Correct Site: Yes; Correct Patient Position: Yes; Correct Supplies: Yes; Dried Flammable Prep: Yes; Blood Products Available: No;. Lidocaine 1% infiltrated to the right groin. Venous access obtained with a micropuncture set. Arterial access obtained with micropuncture set. Holmen-Jesus VIP catheter inserted. Dr. Moura asked to come in for procedure. IV fluids running at 75ml/hr. Dr. Moura arrived. 0.25 wire inserted. Holmen-Jesus out. A 5 chilean JL4 catheter in over wire. Multiple views taken of left coronary artery. Catheter out. A 5 chilean JR4 catheter in over wire. Dr. Velasco not design verification engineer this weekend. Multiple views taken of right coronary artery. ACT drawn. Results 106 seconds. Therapeutic limits - pre-heparin administration 90-150 seconds and monitoring heparin during a vascular procedure >250 seconds. Catheter out. A 5 chilean Angled Pig catheter in over wire. EDP Sample taken: LV 111/7,22; HR: 87 BPM; SpO2: 99%. Pullback taken: LV 110/5,22; AO 123/50(83); Mean: 0mmHg, Peak to Peak: 0mmHg, SEP: 9sec/min; HR: 87 BPM; SpO2: 98%. Catheter out. A Suture was successful obtaining hemostatsis at the Femoral vein insertion site. A Suture was successful obtaining hemostatsis at the Right Femoral artery insertion site. PERRLA. Strong, equal hand spout liner bilaterally. No VTE prophylaxis required. Medication's Wasted: Lidocaine 1% = 1 mL. Medication's Wasted: Heparin = 1000 units. Medication's Wasted: Other = Versed 1 mg. Medication's Wasted: Other = Fentanyl 75mcg. Total IV fluids: 300 mL. Contrast type used: Omnipaque 300 mgI/mL, 500 mL bottle. Post-op diagnosis: Severe multivessel CAD. Complications: None. Estimated blood loss: 5mL-10mL. Patient transferred by bed to 1st floor. Vital chart was stopped. Attempted to contact spouse 5 times. No answer. Access Site Site: Femoral vein Sheath Size: 8 Fr Hemostasis Method: Suture Hemostasis Success: Successful Site: Right Femoral artery Sheath Size: 5 Fr Hemostasis Method: Suture Hemostasis Success: Successful Procedure Medications Start: 12:44 PM Stop: 12:44 PM Medication: Versed 1 mg and Fentanyl 25 mcg Amount: 1 Route: I.V. Start: 12:54 PM Stop: 12:54 PM Medication: 0.9% Saline Amount: 250 ml Route: I.V. bolus Start: 1:10 PM Stop: 1:10 PM Medication: Neosynephrine Amount: 40 mcg/min Route: I.VAris cartagean I, the attending physician, have reviewed and verified all procedure medications. Yes, all medications given per verbal order History/Risk Factors Hypertension: Yes Dyslipidemia: Yes Peripheral Arterial Disease (PAD): No Myocardial Infarction (VA): No Obesity: No Renal Disease: No Prior Interventions PCI: No CABG: No Valve Surgery: No Report Signatures Finalized by Dr Kishan Wright MD [facility] on 04/01/2020 03:57 PM
[2020-04-01] MEDS: heparin drip 25,000 UNIT/500 ML PREMIX 17 UNIT IV (10:53)
--- NOTE | 2020-04-01 10:59 | PC.NURSE ---
Patient Came from ER with heparin drip. Per DR orders, continued heparin drip and titrated based on Next resulting PTT. Nurse titrated heparin from 18 down to 17 mls/hr.
[2020-04-01 11:02] LABS: Troponin 5 6HR 1403 ng/L (0-15); Troponin 5 6HR Delta 645 ng/L (0-12)
--- NOTE | 2020-04-01 11:06 | PC.CHAP ---
Pastoral Care Encounter/Spiritual Assessment Type of Contact [] Declined ticket manager visit [] Patient/Family/Request visit [] Outpatient visit [] Follow-up visit [] Physician referral [] Code/Alert [] Routine visit [] Staff referral [] Actively dying [X] Patient sleeping [] Family support [] [] Out of room [] Palliative care [] [] Receiving care in room [] Pre-surgical visit [] Trauma [] Long length of stay [] ICU visit [] Other: Relational/Emotional Strength [] Patient feels connected with others/family/visitors/staff [] Distress [] Loneliness/isolation [] Abandonment Spirituality of Patient [] Person of Zaynab [] Attends Anabaptist of their Zaynab [] Believes in Prayer [] Reads Bible or Protestant materials [] There are Spiritual issues to be addressed [employer] Interventions [] Prayer [] Active listening [] Non-anxious presence [] Spiritual/emotional support [] Crisis/trauma care [] Spiritual counseling [] Bereavement support [] Provided bereavement packet [] Provided Bible/devotional materials [] Provided toy/stuffed animal, coloring book to patient or family member [] Provided Communion [] Anointing/[place] [] Salvation [] Completed spiritual assessment [] Other: Impact on Illness or Injury [] Angry [] Fearful [] Anxious [] Often cries [] Exhaustion [] Unable to work [] Unable to attend jainism [] Unable to walk/stand [] Unable to read [] Unable to drive [] Unable to eat/drink [] Unable to sleep [] Unable to be with family [] Patient intubated [] Other: Summary Time spent with patient
[2020-04-01] MEDS: diphenhydrAMINE 50 mg Capsule PO (11:15)
[2020-04-01] MEDS: sodium chloride 0.9% 1,000 ML 50 ML IV (11:16)
--- NOTE | 2020-04-01 12:47 | PC.NURSE ---
received critical lab. 6 hr troponin 1403. Change of 645. Nurse Alerted DR collins.
--- NOTE | 2020-04-01 12:48 | PC.NURSE ---
Prepped patient For laboratory courier. Shaved bilateral groin and right wrist. Marked pulses. Administered benadryl and got consent signed.
--- NOTE | 2020-04-01 12:49 | PC.NURSE ---
Nurse attempted to call the patient's with to tell her that after the echocardiagram, the Dr decided a cardiac cath is needed. Called twice. No answer. Left message.
--- NOTE | 2020-04-01 14:03 | W.PM.OPSUD ---
Surgery/Procedure H&P Update DATE OF PROCEDURE: April 01, 2020 DATE H&P PERFORMED: 04/01/20 PREOP DIAGNOSIS: Non-ST elevation myocardial infarction/unstable angina/cardiomyopathy PRIMARY INDICATION FOR PROCEDURE: The above PLANNED PROCEDURE: Right and left heart catheterization with coronary angiogram and possible PCI PATIENT REASSESSED PRIOR TO SEDATION, WITH NO CHANGE NOTED: Yes PHYSICAL EXAM: alert, clear to auscultation bilaterally and regular rate & rhythm AIRWAY EVAL/ANESTHESIA PLAN: normal airway, see other exam findings, ASA III, Monitored Anesthesia, Local Anesthesia, Risks, benefits & alternatives of sedation and/or procedure discussed and Patient agrees to continue as planned
--- NOTE | 2020-04-01 15:33 | PC.NURSE ---
Received patient from prosthetics lab technician. Vitals within normal limits. Patient is A/Ox4 but forgetful of conversation with Physician post cath. Sheath site to right groin does not exhibit and bleeding, swelling, or bruising.
--- NOTE | 2020-04-01 17:32 | PC.NURSE ---
Nurse held fentanyl before the sheath was pulled due to contraindicated vital signs. BP: 79/55
--- NOTE | 2020-04-01 17:57 | P.TS_ITS ---
Transfer Summary Providers Date of Admission: 04/01/20 05:15 Date of Discharge: 04/01/20 Attending Provider at Admission: Carlyle Moura MD Attending Provider at Transfer: Carlyle Moura MD Anticipated Date of Transfer: Anticipated date of transfer: 04/01/20 Receiving Facility & Provider: Receiving Provider: [] Receiving facility: [] Diagnoses at Discharge Discharge Diagnosis (1) NSTEMI (non-ST elevated myocardial infarction): Status: Acute (2) Left bundle branch block: Status: Acute (3) Benign essential hypertension with target blood pressure below 140/90: Status: Acute (4) Dyslipidemia (high LDL; low HDL): Status: Acute (5) Acute decompensated heart failure: Status: Acute Permanent problem details: Acute systolic heart failure with EF 35 to 40% (6) Hypothyroidism: Status: Acute Reason for Visit Reason for Visit: NSTEMI D/A Hospital Course Hospital Course Patient presented with non-ST elevation DE and related acute systolic heart failure with EF 35 to 40%. He was further evaluated with coronary angiogram showing multivessel disease including left main with recommendation to proceed with CABG. Unfortunately Dr. Vincent was not available and Dr. Wright discussed case with Dr. Carver, CT surgeon at [facility] who graciously accepted patient pending bed availability. Coronary angiogram report: Conclusions 1. This is a 79-year-old white male with history of hypertension, dyslipidemia and carotid artery disease, presenting with a increasing episodes of neck pain/jaw pain associated shortness of breath. He had echocardiogram done which revealed LV ejection fraction of 35 to 40%. Serial cardiac enzymes revealed a troponin T delta of 323 in 2 hours. The latest troponin T still shows an upward trend. He had features of LV systolic heart failure. In view of his clinical presentation and the abnormal objective findings, in order to further evaluate his coronary status, a cardiac catheterization was recommended. Patient underwent left and right heart catheterization with a left and right coronary angiogram today. The findings are as follows.. 2. Heavy calcification in the short left main. High-grade lesion of around 95% in the proximal segment of the left anterior descending artery, including the ostium. Moderate diffuse disease in the mid LAD. The ostium of the circumflex artery was found to have around 60% stenosis. Mild diffuse disease was noted in the rest of the circumflex artery . 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 Grade 2-3 left to right collaterals were noted. Left ventricular end-diastolic pressure of 23 mmHg. . 3. The mean right atrial pressure was 7, RV pressure of 37/2. No evidence of shunt, based on the oxygen calculation. LV gram was not performed because of the frequent ventricular arrhythmia. The LVEDP was 23 mmHg. Based on the angiogram findings, patient may benefit from surgical revascularization. This will be discussed the patient in detail and the final decision will be made afterwards. 4. No significant disease noted in the Left Main, LAD, Circumflex, or RCA coronary arteries. Imaging from cardiac cath as well as echocardiogram will be provided along with documentation. During my evaluation this morning patient denies shortness of breath or chest pain at rest. Physical Exam Const: COMMON NORMALS: no acute distress and patient oriented x3 Resp: COMMON NORMALS: normal respiratory effort and clear to auscultation bilaterally AUSCULTATION: clear to auscultation bilaterally Cardio: COMMON NORMALS: regular rate, regular rhythm and S2 normal heart sound present RATE: regular rate RHYTHM: regular rhythm HEART SOUNDS: S2 normal heart sound present OTHER: No lower extremity edema GI: COMMON NORMALS: Normal to inspection, nondistended, normoactive bowel sounds present, Soft to palpation and non-tender PALPATION: Yes Soft to palpation Neuro: COMMON NORMALS: patient oriented x3 and no focal motor deficits TS Data Data Completed and Pending: Completed Studies During Hospitalization Category Date Time 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 Routin e Exams 04/01/20 10:29 Completed XR chest 1V antony ble [id number] Stat Exams 04/01/20 03:04 Completed CV echo complete* [id number] Routine Ultrasound 04/01/20 06:24 Completed Pending at discharge Category Date Time Status Basic Metabolic P charlene AM LABS Lab 04/02/20 04:00 Ordered Complete Blood Co unt w/Auto AM LABS Lab 04/02/20 04:00 Ordered Labs from last 24 hours 04/01/20 04/01/20 04/01/20 09:25 09:25 05:23 WBC RBC Hgb Hct MCV MCH MCHC RDW Plt Count MPV Neut % (Auto) Lymph % (Auto) Schuyler % (Auto) Eos % (Auto) Baso % (Auto) Neut # (Auto) Lymph # (Auto) Schuyler # (Auto) Eos # (Auto) Baso # (Auto) Nucleated RBC % (a uto) Nucleated RBCs # APTT 80.8 H D-Dimer Sodium Potassium Chloride Carbon Dioxide Anion Gap BUN Creatinine GFR Calculation Glucose Estimat Average Gl ucose Hemoglobin A1c Calculated Osmolal ity Calcium Total Bilirubin AST ALT Alkaline Phosphata se Creatine Kinase Troponin T Baselin e Troponin T 120 Min viejas 1151 H Delta Troponin T 393 H* Troponin T Hi Sens 6Hr 1403 H Troponin T Hi Sens 6Hr Delta 645 H* NT-Pro-B Natriuret Pep Total Protein Albumin Globulin Triglycerides Cholesterol LDL Cholesterol, C alc HDL Cholesterol LDL/HDL Ratio Cholesterol/HDL Ra renae TSH SARS-CoV-2 Ag (Rap id) 04/01/20 04/01/20 04/01/20 03:33 03:33 03:33 WBC RBC Hgb Hct MCV MCH MCHC RDW Plt Count MPV Neut % (Auto) Lymph % (Auto) Schuyler % (Auto) Eos % (Auto) Baso % (Auto) Neut # (Auto) Lymph # (Auto) Schuyler # (Auto) Eos # (Auto) Baso # (Auto) Nucleated RBC % (a uto) Nucleated RBCs # APTT D-Dimer Sodium Potassium Chloride Carbon Dioxide Anion Gap BUN Creatinine GFR Calculation Glucose Estimat Average Gl ucose 117 Hemoglobin A1c 5.7 Calculated Osmolal ity Calcium Total Bilirubin AST ALT Alkaline Phosphata se Creatine Kinase Troponin T Baselin e Troponin T 120 Min viejas Delta Troponin T Troponin T Hi Sens 6Hr Troponin T Hi Sens 6Hr Delta NT-Pro-B Natriuret Pep Total Protein Albumin Globulin Triglycerides 31 Cholesterol 156 LDL Cholesterol, C alc 86 HDL Cholesterol 64 LDL/HDL Ratio 1.34 Cholesterol/HDL Ra renae 2.44 TSH 1.81 SARS-CoV-2 Ag (Rap id) 04/01/20 04/01/20 04/01/20 03:33 03:33 03:33 WBC RBC Hgb Hct MCV MCH MCHC RDW Plt Count MPV Neut % (Auto) Lymph % (Auto) Schuyler % (Auto) Eos % (Auto) Baso % (Auto) Neut # (Auto) Lymph # (Auto) Schuyler # (Auto) Eos # (Auto) Baso # (Auto) Nucleated RBC % (a uto) Nucleated RBCs # APTT D-Dimer Sodium 133 L Potassium 4.6 Chloride 98 Carbon Dioxide 20 L Anion Gap 19.6 H BUN 19 Creatinine 1.0 GFR Calculation Not Reportable Glucose 166 H Estimat Average Gl ucose Hemoglobin A1c Calculated Osmolal ity 282 L Calcium 9.1 Total Bilirubin 0.5 AST 90 H ALT 25 Alkaline Phosphata se 70 Creatine Kinase 649 H* Troponin T Baselin e 758 H* Troponin T 120 Min viejas Delta Troponin T Troponin T Hi Sens 6Hr Troponin T Hi Sens 6Hr Delta NT-Pro-B Natriuret Pep 4826 H Total Protein 6.6 Albumin 4.1 Globulin 2.5 Triglycerides Cholesterol LDL Cholesterol, C alc HDL Cholesterol LDL/HDL Ratio Cholesterol/HDL Ra renae TSH SARS-CoV-2 Ag (Rap id) Negative 04/01/20 04/01/20 03:33 03:33 WBC 4.8 RBC 4.72 Hgb 13.8 Hct 42.2 MCV 89.4 MCH 29.2 MCHC 32.7 RDW 12.9 Plt Count 189 MPV 10.0 Neut % (Auto) 93.3 Lymph % (Auto) 4.2 Schuyler % (Auto) 2.3 Eos % (Auto) 0.0 Baso % (Auto) 0.2 Neut # (Auto) 4.47 Lymph # (Auto) 0.2 L Schuyler # (Auto) 0.1 L Eos # (Auto) 0.0 Baso # (Auto) 0.0 Nucleated RBC % (a uto) 0 Nucleated RBCs # 0.0 APTT D-Dimer 0.52 Sodium Potassium Chloride Carbon Dioxide Anion Gap BUN Creatinine GFR Calculation Glucose Estimat Average Gl ucose Hemoglobin A1c Calculated Osmolal ity Calcium Total Bilirubin AST ALT Alkaline Phosphata se Creatine Kinase Troponin T Baselin e Troponin T 120 Min viejas Delta Troponin T Troponin T Hi Sens 6Hr Troponin T Hi Sens 6Hr Delta NT-Pro-B Natriuret Pep Total Protein Albumin Globulin Triglycerides Cholesterol LDL Cholesterol, C alc HDL Cholesterol LDL/HDL Ratio Cholesterol/HDL Ra renae TSH SARS-CoV-2 Ag (Rap id) Vitals: Last Vital Signs Temp 98.2 F 04/01/20 16:00 Pulse 94 04/01/20 16:00 Resp 18 04/01/20 16:00 BP 92/66 04/01/20 16:00 Pulse Ox 98 04/01/20 16:00 TS Medications Medications Home Medications atorvastatin 10 mg PO BEDTIME 04/01/20 [History Confirmed 04/01/20] finasteride 5 mg PO BEDTIME 04/01/20 [History Confirmed 04/01/20] levothyroxine 50 mcg PO DAILY 04/01/20 [History Confirmed 04/01/20] lisinopril 10 mg PO BEDTIME 04/01/20 [History Confirmed 04/01/20] metoprolol tartrate 6.25 mg PO BID 04/01/20 [History Confirmed 04/01/20] terazosin 10 mg PO BEDTIME 04/01/20 [History Confirmed 04/01/20] Active Medications Al Hydrox/Mg Hydrox/Simethicone (Yaed-Pus-Enztrbwmu-Rosy 30 Ml Udc) 30 ml PO Q15M PRN PRN Reason: INDIGESTION Alprazolam (Alprazolam 0.25 Mg Tablet) 0.25 mg PO TID PRN PRN Reason: ANXIETY Aspirin (Aspirin 81 Mg Ec Tablet) 81 mg PO DAILY [facility] Last Admin: 04/01/20 09:33 Dose: 81 mg Documented by: Atorvastatin Calcium (Atorvastatin 40 Mg Tablet) 80 mg PO BEDTIME [facility] Atropine Sulfate (Atropine 1 Mg/Ml Sdv 1 Ml) 0.5 mg IVP PRN PRN PRN Reason: Symptomatic bradycardia Clopidogrel Bisulfate (Clopidogrel 75 Mg Tablet) 75 mg PO DAILY [facility] Last Admin: 04/01/20 09:35 Dose: 75 mg Documented by: Sodium Chloride (Sodium Chloride 0.9%) 1,000 mls @ 50 mls/hr IV .Q20H ONE Stop: 04/02/20 06:54 Last Admin: 04/01/20 11:16 Dose: 50 mls/hr Documented by: Levothyroxine Sodium (Levothyroxine 50 Mcg Tablet) 50 mcg PO DAILY [facility] Last Admin: 04/01/20 09:34 Dose: 50 mcg Documented by: Magnesium Hydroxide (Magnesium Hydroxide 30 Ml Udc) 30 ml PO DAILY PRN PRN Reason: CONSTIPATION Metoprolol Succinate (Metoprolol Succinate Er (24 Hr) 25 Mg Tablet) 12.5 mg PO DAILY [facility] Last Admin: 04/01/20 09:36 Dose: 12.5 mg Documented by: Nitroglycerin (Nitroglycerin 0.4 Mg Sublingual Tablet) 0.4 mg SUBLINGUAL Q5M PRN PRN Reason: CHEST PAIN Ondansetron HCl (Ondansetron 2 Mg/Ml Sdv 2 Ml) 4 mg IVP Q6H PRN PRN Reason: NAUSEA AND VOMITING Temazepam (Temazepam 15 Mg Capsule) 15 mg PO BEDTIME PRN PRN Reason: INSOMNIA Terazosin HCl (Terazosin 5 Mg Capsule) 10 mg PO BEDTIME [facility] Discharge Plan Discharge Patient Disposition: Home Condition: Stable Prescriptions: No Action metoprolol tartrate 25 mg tablet 6.25 mg PO BID RF: 0 atorvastatin 10 mg tablet 10 mg PO BEDTIME RF: 0 finasteride 5 mg tablet 5 mg PO BEDTIME RF: 0 lisinopril 10 mg tablet 10 mg PO BEDTIME RF: 0 terazosin 10 mg capsule 10 mg PO BEDTIME RF: 0 levothyroxine 50 mcg tablet 50 mcg PO DAILY RF: 0 Discharge Orders: Discharge Order (Routine); Ordered 04/01/20 Ordered By: Fredrick Deutsch Discharge Diet: Usual diet Discharge Activity: Bedrest Activity Restrictions/Additional Instructions: You are being transferred to [facility] as we have discussed. You will be given discharge instructions after you are discharged from 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
--- NOTE | 2020-04-01 19:40 | PC.NURSE ---
nurse pulled arterial and venous sheath from right groin. Pressure held to arterial site for 20 minutes. !0 minutes to the venous site. Sheath pull was uneventful. No excessive bleeding, no hematoma, and vital signs remained stable throughout procedure. patient tolerated well.
[2020-04-01] MEDS: atorvastatin 40 mg Tablet 80 MG PO (21:11)
[2020-04-01] MEDS: terazosin 5 mg Capsule 10 MG PO (21:11)
[2020-04-02] VITALS (27 sets, daily range): BP systolic 63–114; BP diastolic 41–58; PULSE 67–94; RESP 13–32; TEMP 36.6–36.8; O2SAT 83–99
[2020-04-02 05:28] LABS: Basophils % 0.3 %; Hematocrit 34.7 % (42.0-52.0); Lymphocytes # 0.6 10^3/uL (0.8-4.8); Lymphocytes % 9.2 %; Mean Corpuscular HGB Conc 31.7 g/dL (30.0-36.0); Mean Corpuscular Hemoglobin 29.2 pg (28.0-34.0); Monocytes # 1.1 10^3/uL (0.2-0.9); Monocytes % 18.8 %; Neutrophils % 71.7 %; Nucleated Red Blood Cells % 0 %; Platelet Count 161 10^3/cmm (130-400); Red Blood Count 3.77 10^6/uL (4.1-5.3); Red Cell Distribution Width 13.2 % (12.1-15.1)
[2020-04-02 05:56] LABS: Anion Gap 15.5 (5-19); Blood Urea Nitrogen 30 mg/dL (8-23); Calcium 8.4 mg/dL (8.5-10.5); Carbon Dioxide 23 mmol/L (22-29); Chloride 100 mmol/L (98-107); Glucose 108 mg/dL (65-115); Osmolality Calculated 285 mOsm/kg (285-295); Potassium 4.5 mmol/L (3.5-5.1); Sodium 134 mmol/L (136-145)
--- NOTE | 2020-04-02 07:47 | PC.NURSE ---
Patient to be transported to [facility] via ambulance. Report called to nurse RN on floor for room 7222-2 Clari. VS 114/58 , 87, 14, 94% on 2L afebrile at 97.8 oral. Patient family notified and Patient stable for transport. IV's patent and intact to bilateral AC spaces. No skin issues patient A&Ox 4. R groin site clean dry and intact with bruising noted around site but no hematoma. Skin soft and palpable with pulses strong and intact to BL feet.
--- NOTE | 2020-04-02 08:24 | PM.PN ---
Subjective Subjective: Interval history: Patient reports that last night he was slightly short of breath but this morning reports feeling much better. Denies chest pain. He denies any difficulty with urination and urinated this morning. He was not discharged yesterday but transportation crew is at bedside to take patient this morning. He was noted that patient's creatinine slightly increased and could possibly be related to procedure contrast or diuresis. Lung exam this morning is clear. Vitals/I&O/Wt Last Vital Signs Temp 97.8 F 04/02/20 07:53 Pulse 94 04/02/20 07:53 Resp 18 04/02/20 07:53 BP 114/58 04/02/20 07:53 Pulse Ox 95 04/02/20 07:53 04/01/20 04/02/20 04/02/20 22:59 06:59 14:59 Intake Total 340 / 340 150 / 490 Output Total 530 / 530 200 / 730 Balance -190 / -190 -50 / -240 Weight last 48 hrs Weight 73.845 kg Weight 74.843 kg Physical Exam Const: COMMON NORMALS: no acute distress and patient oriented x3 Resp: COMMON NORMALS: normal respiratory effort and clear to auscultation bilaterally AUSCULTATION: clear to auscultation bilaterally Cardio: COMMON NORMALS: regular rate, regular rhythm and S2 normal heart sound present RATE: regular rate RHYTHM: regular rhythm HEART SOUNDS: S2 normal heart sound present OTHER: No lower extremity edema GI: COMMON NORMALS: Normal to inspection, nondistended, normoactive bowel sounds present, Soft to palpation and non-tender PALPATION: Yes Soft to palpation Neuro: COMMON NORMALS: patient oriented x3 and no focal motor deficits Data : 04/02/20 04:16 04/02/20 04:16 A&P Assessment and plan (1) NSTEMI (non-ST elevated myocardial infarction): Status: Acute (2) Left bundle branch block: Status: Acute (3) Benign essential hypertension with target blood pressure below 140/90: Status: Acute (4) Dyslipidemia (high LDL; low HDL): Status: Acute (5) Acute decompensated heart failure: Status: Acute (6) Hypothyroidism: Status: Acute Additional A&P Information NSTEMI Significant delta troponin, left bundle branch block, no active chest pain, does not meet Brugada's criteria for STEMI alert I will start him on heparin, aspirin, Plavix, high-intensity statins, beta-marcus and lisinopril Dr. Wright consulted(went to voicemail) Dr. Moura requested hospital service to admit the patient Echo Patient most likely will benefit from an angiogram considering new left bundle branch block and NSTEMI and CHF Check lipid profile, A1c panel and TSH New onset CHF Most likely etiology is coronary ischemia He will benefit from an angiogram No acute respiratory distress, currently saturating well on room air at the time of my evaluation Received IV Lasix 60 mg in the ER I would keep him on 20 mg for now clinically does not look significantly fluid overloaded however chest x-ray is consistent with pulmonary edema which goes with the clinical picture of left-sided heart failure Acquired hypothyroidism: Continue levothyroxine, check TSH Hypertension: Currently normotensive N.p.o. Full code DVT prophylaxis not needed currently on therapeutic dose of heparin PLAN: Patient will be transferred to [facility] today for CABG procedure. Please refer to transfer summary done yesterday. No medication changes. Attestations Medical Necessity Statement*: Patient is being transferred. 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
== END 2020-04-02 07:55 | disposition short-term general hospital (02) | DRG 282 ==
LOC: ER 03:23 → CSU 05:22
PROVIDERS: Internal Medicine; Internal Medicine Cardiovascular Disease; Admitting Provider Internal Medicine Cardiovascular Disease; Emergency Provider Emergency Medicine; Visit Provider Internal Medicine Cardiovascular Disease
PROC: B2151ZZ Fluoroscopy of Left Heart using Low Osmolar Contrast (ICD-10-PCS; principal; 2020-04-01 11:30)
DX: I21.4 Non-ST elevation (NSTEMI) myocardial infarction (principal); I25.110 Atherosclerotic heart disease of native coronary artery with unstable angina pectoris; I11.0 Hypertensive heart disease with heart failure; I50.9 Heart failure, unspecified; E78.5 Hyperlipidemia, unspecified; I25.10 Atherosclerotic heart disease of native coronary artery without angina pectoris; N40.0 Benign prostatic hyperplasia without lower urinary tract symptoms; E89.0 Postprocedural hypothyroidism; I44.7 Left bundle-branch block, unspecified
CPT/HCPCS: 12345; 36415; 71045; 80048; 80053; 80061; 82550; 83036; 83880; 84443; 84484; 85025; 85347; 85378; 85730; 87426; 93005; 93306; 93461; 96375; 99283; C1751; C1769; C1887; C1894; J1644; J1940; J2250; J3010; J3490; J7030; Q0163; Q9967